=== PATIENT | female | born 1990 ===

== ENCOUNTER 2021-10-09 09:13 | Outpatient (CLI) | payer OTHER | END 2021-10-09 10:30 | disposition home or self-care (01) | LOC: PRENATAL 09:13 | PROVIDERS: ATTEND Obstetrics & Gynecology Maternal & Fetal Medicine | DX: O35.0XX0 Maternal care for (suspected) central nervous system malformation in fetus, not applicable or unspecified (principal); O35.3XX0 Maternal care for (suspected) damage to fetus from viral disease in mother, not applicable or unspecified; O99.891 Other specified diseases and conditions complicating pregnancy; O99.210 Obesity complicating pregnancy, unspecified trimester ==

== ENCOUNTER 2022-12-20 08:26 | Outpatient (CLI) | payer OTHER | END 2022-12-20 08:34 | disposition home or self-care (01) | LOC: SONOGRAMA 08:26 | PROVIDERS: ATTEND Pathology Anatomic Pathology & Clinical Pathology | DX: D34 Benign neoplasm of thyroid gland (principal); E04.9 Nontoxic goiter, unspecified; E06.3 Autoimmune thyroiditis; E03.9 Hypothyroidism, unspecified ==